=== PATIENT | male | born 1950 | race Caucasian/White ===

== ENCOUNTER → 2017-04-11 | Day surgery (SDC) | payer BC ==
[2017-04-10 13:35] VITALS: BMI 26.4
[~2017-04-11] MED LIST: LACTATED RINGERS 1,000 ML IV ONE; LIDOCAINE 1% 20 ML VIAL (10MG/ML) FOR IV START INTRADERMA ONE; LIDOCAINE 1% INJ 10MG/ML (20 ML MDV) ONE; PROPOFOL 10 MG/ML 20 ML VIAL IV ONE
[2017-04-11 13:12] VITALS: TEMP 989
[2017-04-11 14:56] VITALS: BP 126/84; PULSE 83; RESP 16
--- NOTE | 2017-04-11 15:03 | P.PCN ---
Date of Procedure: 04/11/17 Procedure(s) Performed: Procedure: Esophagogastroduodenoscopy and biopsy. Preoperative diagnosis: Tarry bowel movements, rule out GI bleeding. Postoperative diagnosis: 1. Hiatal hernia with continued obliteration of the esophageal varices with no evidence of esophagitis or bleeding. 2. Gastritis and duodenitis with no evidence of bleeding. 3. Biopsy obtained from the antrum. Preparation sedation: Was provided by anesthesia. Brief clinical history: The patient is a 67-year-old male with history of hemochromatosis and cirrhosis of the liver with portal hypertension and previous bleeding esophageal varices requiring multiple endoscopies with banding , who underwent in May 2015 a liver transplantation and has been doing well. 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 He was advised to have an upper endoscopy to assess for esophageal varices or other pathology. His last upper endoscopy with variceal banding was in January 2015. Procedure: With the patient on his left lateral decubitus position and after informed consent and adequate sedation, I passed the Olympus-GIF 160 video upper endoscope through the cricopharyngeus down the esophagus. GE junction was around 42-43 cm from the incisors and there was a small sliding hiatal hernia. The esophagus did not show any varices or mucosal tears or any evidence of esophagitis. The varices remain completely obliterated. The endoscope was then passed into the stomach which was insufflated with air and inspected in detail including the retroflex view in the cardia. There was some mottling and erythema in the antrum and some pinpoint submucosal hemorrhages but no ulcers or erosions. No pyloric channel ulcers. Duodenal bulb showed similar findings of mottling, erythema and occasional small erosion but no evidence of bleeding. No ulcers or bleeding. Post bulbar area and descending duodenum within normal limits. All secretions encountered in the stomach and duodenum where bilious in color. I obtained biopsies from the antrum then the endoscope was withdrawn. The patient tolerated the procedure well. Plan: The patient was reassured. He will resume diet as tolerated and will monitor his symptoms. Further plans based on his course.
== END ==
LOC: ORWHC2ENDO 11:42
DX: K29.50 Unspecified chronic gastritis without bleeding (principal); K29.80 Duodenitis without bleeding; K44.9 Diaphragmatic hernia without obstruction or gangrene; K74.69 Other cirrhosis of liver; E83.119 Hemochromatosis, unspecified; G47.33 Obstructive sleep apnea (adult) (pediatric); Z94.4 Liver transplant status; Z88.6 Allergy status to analgesic agent; Z79.2 Long term (current) use of antibiotics; Z79.82 Long term (current) use of aspirin
CPT/HCPCS: 88305; 88342; 43239; J2001; J2704

== ENCOUNTER 2019-09-01 10:59 | Emergency (ER) | payer MEDICARE, BC ==
[2019-09-01 11:13] VITALS: BP 146/101; PULSE 78; RESP 16; TEMP 97.9
[2019-09-01] MEDS ORDERED: LIDOCAINE 1% INJ 10MG/ML (20 ML MDV) SQ ONE (11:33)
--- NOTE | 2019-09-01 12:35 | ED ---
Fall HPI - General Chief Complaint: Fall Stated Complaint: fall/nose lac Time Seen by Provider: 09/01/19 11:19 Source: patient Mode of arrival: ambulatory - History of Present Illness Initial Comments: Patient is a 69-year-old male presenting to the emergency department with a laceration on his nose. Patient states he tripped in his camper and fell onto his left hand, also hitting his glasses onto his nose which created a laceration. Patient denies LOC, having headache, nausea, vomiting. He denies being on blood thinners. He states he feels fine other than the laceration on his nose. He states he has a history of a fractured nose many years ago. He states he also has a slight deviated septum. He is not having any trouble breathing. His tetanus is up-to-date. He has no further complaints at this time. - Related Data Home Medications Medication Instructions Recorded Confirmed Aspirin [Adult Low Dose Aspirin EC] 81 mg PO DAILY 04/10/17 04/11/17 Levofloxacin [Levaquin] 750 mg PO DAILY 04/10/17 04/10/17 Tacrolimus (Unknown Dose) 1 cap PO BID 04/10/17 04/11/17 Allergies Allergy/AdvReac Type Severity Reaction Status Date / Time ibuprofen AdvReac Unknown STATES Verified 09/01/19 11:13 UNABLE TO TAKE DUE TO LIVER TRANSPLANT NSAIDS (Non-Steroidal AdvReac Unknown STATES Verified 09/01/19 11:13 Anti-Inflamma UNABLE TO TAKE DUE TO LIVER TRANSPLANT Review of Systems ROS Statement: Those systems with pertinent positive or pertinent negative responses have been documented in the HPI. ROS Other: All systems not noted in ROS Statement are negative. Past Medical History Past Medical History: Liver Disease, Sleep Apnea/CPAP/BIPAP Additional Past Medical History / Comment(s): HX LIVER CIRRHOSIS R/T HEMOCH ROMATOSIS, HX OF ESOPHAGEAL VARICIES (SINCE 2007), LIVER TRANSPLANT ., ROBOTIC HERNIA SURGERY 04/03/17 AT [facility]- STATES HE WAS DISCHARGED 04/04/17 AND READMITTED ON 04/05/17 FOR COUGHING UP BLOOD AND HICCUPS & THEN DISCHARGED 04/08/17. History of Any Multi-Drug Resistant Organisms: None Reported Past Surgical History: Hernia Repair Additional Past Surgical History / Comment(s): NUMEROUS EGD'S, ESOPHAGEAL VARICE BANDING SEVERAL TIMES, LIVER TRANSPLANT., HERNIA SURGERY 04/03/17 . Past Anesthesia/Blood Transfusion Reactions: No Reported Reaction Additional Past Anesthesia/Blood Transfusion Reaction / Comment(s): HX OF BLOOD TRANSFUSION (2007)- NO REACTION Past Psychological History: No Psychological Hx Reported Smoking Status: Never smoker Past Alcohol Use History: None Reported Past Drug Use History: None Reported - Past Family History Mother Family Medical History: No Reported History General Exam - General Exam Comments Initial Comments: GENERAL: Well-appearing, well-nourished and in no acute distress. HEAD: Atraumatic, normocephalic. No signs of basal skull fracture. EYES: Pupils equal round and reactive to light, extraocular movements intact, sclera anicteric, conjunctiva are normal. ENT: TMs normal, nares patent, oropharynx clear without exudates. Moist mucous membranes. No septal hematoma. Patient has a "7" shaped, 1 cm laceration to the bridge of his nose. No active bleeding. No tenderness to the nasal bone. NECK: Normal range of motion, supple without lymphadenopathy or JVD. No midline tenderness. LUNGS: Breath sounds clear to auscultation bilaterally and equal. No wheezes rales or rhonchi. HEART: Regular rate and rhythm without murmurs, rubs or gallops. ABDOMEN: Soft, nontender, normoactive bowel sounds. No guarding, no rebound. No masses appreciated. : Deferred EXTREMITIES: Mild pain to the base of the left thumb over the muscle belly. Patient has full left wrist range of motion as well as hand range of motion. No pain in the wrist or snuffbox area. There is no swelling to the area. Neurovascular intact. No clubbing or cyanosis. NEUROLOGICAL: Normal speech, normal gait. PSYCH: Normal mood, normal affect. SKIN: Warm, Dry, normal turgor, no rashes or lesions noted. Limitations: no limitations Course Vital Signs 09/01/19 11:10 Temperature 97.9 F Pulse Rate 78 Respiratory 16 Rate Blood Pressure 146/101 O2 Sat by Pulse 98 Oximetry Procedures - Laceration Laceration #1 Consent Obtained: verbal consent Indication: laceration Site: face (Nasal bridge) Size (cm): 1 Description: irregular ("7" shaped) Depth: simple, single layer Anesthetic Used: lidocaine 1% Anesthesia Technique: local infiltration Amount (mls): 3 Pre-repair: irrigated extensively Type of Sutures: nylon Size of Sutures: 5-0 Number of Sutures: 4 Patient Tolerated Procedure: well Medical Decision Making - Medical Decision Making Patient is 69-year-old male here with a 1 cm laceration to his nasal bridge after having a fall. His exam is unremarkable, no LOC, no headache, no blood thinners. He has some mild pain to the muscle belly at the base of the left thumb, this is most likely a small contusion. Patient's wound on his nose was cleaned, closed with 4, 50 sutures. Patient tolerated procedure well. He is stable for discharge at this time. He will have sutures removed in 7-10 days. He is in agreement with this plan of care. Case discussed with Dr. Pierce. Disposition Clinical Impression: Fall, Laceration of nose Disposition: HOME SELF-CARE Condition: Stable Instructions (If sedation given, give patient instructions): Care For Your Stitches (ED) Additional Instructions: Please return to the Emergency Department if symptoms worsen or any other concerns. Sutures need to be removed in 5-7 days Keep wound clean and dry. Is patient prescribed a controlled substance at d/c from ED?: No Referrals: Anurag Neves MD [Primary Care Provider] - 1-2 days
== END 2019-09-01 12:40 | disposition home or self-care (01) ==
LOC: EC 10:59
DX: S01.21XA Laceration without foreign body of nose, initial encounter (principal); M79.645 Pain in left finger(s); J34.2 Deviated nasal septum; Z79.82 Long term (current) use of aspirin; Z88.6 Allergy status to analgesic agent; Z87.19 Personal history of other diseases of the digestive system; Z94.4 Liver transplant status; W01.198A Fall on same level from slipping, tripping and stumbling with subsequent striking against other object, initial encounter; Y92.89 Other specified places as the place of occurrence of the external cause
CPT/HCPCS: 99282; 12011; J2001

== ENCOUNTER → 2023-05-11 | Outpatient (CLI) | payer MEDICARE, BC ==
[2023-05-11 11:28] LABS: African American GFR (CKD) 72 (>60 ml/min/1.73 sqM); Blood Urea Nitrogen 28 mg/dL (9-20); Non-African American GFR(CKD) 62 (>60 ml/min/1.73 sqM)
--- NOTE | 2023-05-12 10:03 | CT ---
EXAMINATION TYPE: CT neck chest w/wo con CT DLP: 2030 mGycm, Automated exposure control for dose reduction was used. 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 Axial sections with coronal and sagittal refo rmats were obtained. Contrast used:100ml mL of Isovue 300 with IV Contrast, (none if empty) Oral contrast used: (none if empty) FINDINGS: Brain: Visualized portions are grossly unremarkable. Orbits: Unremarkable Sinuses: Grossly unremarkable. Spaces of the neck: Limited evaluation of the soft tissues of the neck due to lack of IV contrast. Wi thin the limitations exam, there is no for enlarging mass. Multiple surgical clips are present along the right neck. Musculoskeletal: No acute osseous pathology. Degenerative disc disease changes of the visualized spin e are present. Lymph nodes: Multiple nonenlarged lymph nodes are seen along both anterior chains of the neck. Vascular structures: Visualized major arteries are patent without evidence of aneurysm. Thoracic Inlet/airway: Airway is patent. The lung apices are clear. Soft tissues/Thyroid: Thyroid and remainder of the soft tissues are unremarkable. Other: none. LUNGS/ PLEURA: Right upper lung pulmonary nodule measuring up to 14 mm previously 08/22/2022 may have m easured 1-2 mm. AIRWAY: Patent and unremarkable. HEART: Size within normal limits. Atherosclerosis of the coronary arteries. MEDIASTINUM: No gross evidence of adenopathy. VASCULATURE: No aortic aneurysm. MUSCULOSKELETAL: Mild disc degeneration changes are present throughout the thoracolumbar spine. SOFT TISSUES/LYMPH NODES: Unremarkable. LOWER NECK: No significant findings. UPPER ABDOMEN: Second portion duodenal diverticulum. IMPRESSION: 1. Spiculated right upper lobe nodule measuring up to 14 mm concerning for malignancy/metastatic dis ease. 2. Limited evaluation of the soft tissues of the neck due to lack of IV contrast.
== END | disposition home or self-care (01) ==
LOC: RADCTMAIN 10:36
PROVIDERS: ATTEND Radiology Radiation Oncology
DX: R91.1 Solitary pulmonary nodule (principal); C44.222 Squamous cell carcinoma of skin of right ear and external auricular canal
CPT/HCPCS: 82565; 84520; 70492; 71270; 36415; Q9967

== ENCOUNTER → 2023-08-01 | Outpatient (CLI) | payer MEDICARE, BC ==
[2023-08-01 08:40] LABS: African American GFR (CKD) 74 (>60 ml/min/1.73 sqM); Blood Urea Nitrogen 28 mg/dL (9-20); Non-African American GFR(CKD) 64 (>60 ml/min/1.73 sqM)
--- NOTE | 2023-08-03 10:35 | CT ---
EXAMINATION TYPE: CT chest wo/w con DATE OF EXAM: 08/01/2023 COMPARISON: 05/11/2023 HISTORY: right lung nodule CT DLP: 1097 mGycm Automated exposure control for dose reduction was used. CONTRAST: CT scan of the chest is performed with IV Contrast, patient injected with 100 mL of Isovue 300. FINDINGS: LUNGS: Spiculated nodule right upper lobe persists although is much smaller in size and currently atina sures 7.3 mm versus 1.3 cm previously. No new nodules identified. There is no pleural effusion or pne umothorax seen. The tracheobronchial tree is patent. MEDIASTINUM: There are no greater than 1 cm hilar or mediastinal lymph nodes. No pericardial effusi on is seen. Thoracic aorta is of normal caliber. The heart is not enlarged. UPPER ABDOMEN: No significant abnormality appreciated. OTHER: No additional significant abnormality is seen. IMPRESSION: 1.Spiculated nodule right upper lobe persists although is much smaller in size and currently measures 7.3 mm versus 1.3 cm previously. No new nodules identified.
== END | disposition home or self-care (01) ==
LOC: RADCTMAIN 07:53
PROVIDERS: ATTEND Radiology Radiation Oncology
DX: C44.222 Squamous cell carcinoma of skin of right ear and external auricular canal (principal); R91.1 Solitary pulmonary nodule
CPT/HCPCS: 82565; 84520; 71270; 36415; Q9967

== ENCOUNTER → 2023-11-02 | Outpatient (CLI) | payer MEDICARE, BC ==
--- NOTE | 2023-11-25 20:30 | CT ---
Site ID synapse default Patient Hermann Buckley ID [id number] Age/Gender: 73Y, M Order # N/A Procedure CT neck chest w con Date 11/02/2023 10:57:00 AM EXAMINATION TYPE: CT neck chest w con CT DLP: 1036 mGycm, Automated exposure control for dose reduction was used. DATE OF EXAM: 11/09/2023 1:47 PM COMPARISON: CT chest 08/01/2023, CT neck chest 05/11/2023. CLINICAL INDICATION: Male, 73 year old with history of squamous cell carcinoma. TECHNIQUE: Standard enhanced CT of the neck and chest. Axial sections with coronal and sagittal refo rmats were obtained. Contrast used: 100 mL of Isovue 300 Oral contrast used: None FINDINGS: Brain: Visualized portions are grossly unremarkable. Orbits: Unremarkable Sinuses: Grossly unremarkable. Spaces of the neck: Limited evaluation of the soft tissues of the neck due to poor contrast bolus. Wi thin the limitations exam, there is no for enlarging mass. Multiple surgical clips are present along the right neck. Musculoskeletal: No acute osseous pathology. Degenerative disc disease changes of the visualized spin e are present. Postsurgical changes of the right mastoid. Partial opacification of the left mastoid a ir cells inferiorly. Multilevel cervical degenerative disease. Lymph nodes: No pathologically enlarged lymph nodes greater than 1 cm short axis identified. Vascular structures: Visualized major arteries are patent without evidence of aneurysm. Thoracic Inlet/airway: Airway is patent. Please see below. Soft tissues/Thyroid: Thyroid and remainder of the soft tissues are unremarkable. Other: none. LUNGS/ PLEURA: Marginal decrease in size of spiculated right upper lobe pulmonary nodule measuring 6. 2 mm, previously 8.0 mm when measured with similar technique. No new or enlarging pulmonary nodules. No pleural effusion, pneumothorax, or focal consolidation. AIRWAY: Patent and unremarkable. HEART: Size within normal limits. Atherosclerosis of the coronary arteries. MEDIASTINUM: No evidence of adenopathy. VASCULATURE: No aortic aneurysm. Paraesophageal collateral vessels. MUSCULOSKELETAL: Mild disc degeneration changes are present throughout the thoracolumbar spine. DISH of the mid thoracic spine. No aggressive osseous lesion. SOFT TISSUES/LYMPH NODES: Bilateral gynecomastia. LOWER NECK: Please see above. UPPER ABDOMEN: Periampullary duodenal diverticulum. Small hiatal hernia. Post cholecystectomy changes . IMPRESSION: 1. Marginal decrease in size of spiculated right upper lobe pulmonary nodule measuring up to 6.2 mm, previously 8.0 mm. No new or larger pulmonary nodules. No lymphadenopathy. 2. Postsurgical changes in the right neck with limited evaluation due to poor contrast bolus. No kamala s evidence for recurrence.
== END | disposition home or self-care (01) ==
LOC: RADCTMAIN 11:00
PROVIDERS: ATTEND Radiology Radiation Oncology
DX: C44.222 Squamous cell carcinoma of skin of right ear and external auricular canal (principal); R91.1 Solitary pulmonary nodule
CPT/HCPCS: 70491; 71260; Q9967